=== PATIENT | female | born 1985 ===

== ENCOUNTER 2017-05-29 11:40 | Emergency (ER) | payer SELFPAY ==
[2017-05-29 11:48] VITALS: BP 147/90; PULSE 77; RESP 16; TEMP 97.9; O2SAT 98
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
== END 2017-05-29 12:39 | disposition home or self-care (01) ==
LOC: H.ER 11:40
DX: S01.511A Laceration without foreign body of lip, initial encounter (principal); Y04.1XXA Assault by human bite, initial encounter; Y92.89 Other specified places as the place of occurrence of the external cause; E03.9 Hypothyroidism, unspecified; Z23 Encounter for immunization

== ENCOUNTER 2018-05-28 06:38 | Emergency (ER) | payer OTHER ==
[2018-05-28 07:10] VITALS: RESP 18
[2018-05-28] MEDS ORDERED: Sodium Chloride 0.9% 1,000 ML IV STA (07:39)
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
[2018-05-28 07:58] LABS: BASO % 0.4 % (0.0-2.0); EOS # 0.1 K/uL (0.0-0.7); EOS % 1.3 % (0.0-4.0); HEMOGLOBIN 14.1 g/dL (12.0-16.0); LYMPH # 2.5 K/uL (1.0-4.3); LYMPH % 26.1 % (20.0-40.0); MEAN CELL VOLUME 99.7 fl (81.0-99.0); MEAN CORPUSCULAR HEMOGLOBIN 33.8 pg (27.0-31.0); MEAN CORPUSCULAR HGB CONC 33.9 g/dL (33.0-37.0); MEAN PLATELET VOLUME 8.6 fl (7.2-11.7); MONO # 0.8 K/uL (0.0-0.8); NEUT # 6.2 K/uL (1.8-7.0); NEUT % 64.2 % (50.0-75.0); RBC 4.17 Mil/uL (3.80-5.20); RED CELL DISTRIBUTION WIDTH 13.3 % (11.5-14.5); WHITE BLOOD COUNT 9.6 K/uL (4.8-10.8)
[2018-05-28 08:07] LABS: ALB/GLOB RATIO 1.2 (1.0-2.1); ALT/SGPT 32 U/L (9-52); AST/SGOT 29 U/L (14-36); BLOOD UREA NITROGEN 15 mg/dl (7-17); CALCIUM 9.3 mg/dL (8.4-10.2); GFR NON-AFRICAN AMERICAN > 60
[2018-05-28 13:42] VITALS: BP 132/78; PULSE 82; TEMP 98.3; O2SAT 97
--- NOTE | 2018-05-28 13:57 | US ---
Date of service: 05/28/2018 PROCEDURE: HISTORY: preg and pain COMPARISON: TECHNIQUE: FINDINGS: The uterus measures 6.4 x 3.8 x 4.6 centimeters. The endometrium is thickened and heterogeneous measuring 9 millimeters. No discrete intrauterine is observed. There is an anechoic structure measuring 5 millimeters in the endometrium which could represent a gestational sac versus cystic endometrial hyperplasia. An anterior subserosal leiomyoma measures 1.8 centimeters. The ovaries are unremarkable. There is no free fluid the pelvis. IMPRESSION: Thickened endometrium with cystic changes; correlate with beta HCG levels. Findings could represent a missed . No evidence of intrauterine . Ectopic is not excluded. Recommend short-term interval follow-up and correlation with serial beta HCG levels.
== END 2018-05-28 14:00 | disposition home or self-care (01) ==
LOC: H.ER 06:38
DX: O20.0 Threatened abortion (principal); Z3A.01 Less than 8 weeks gestation of pregnancy; O99.281 Endocrine, nutritional and metabolic diseases complicating pregnancy, first trimester; O26.891 Other specified pregnancy related conditions, first trimester
CPT/HCPCS: 76817; 80053; 81025; 84702; 85025; 86850; 86900; 96374; 99284; J2765; J7030